=== PATIENT | male | born 1950 | race Caucasian/White ===

== ENCOUNTER → 2017-06-15 | Outpatient (REF) | payer MEDICARE ==
[~2017-06-15] MED LIST: ASPI81TA31 OR; CIAL5TAB OR; CIPR500T4; FLAG500T; TESTIM TOP; VICO5TAB; VICO5TAB PO; [UNRECOGNIZED DRUG - OTHER] PO
[2017-06-15 20:32] LABS: ALBUMIN 3.6 GM/DL (3.2-5.2); ALBUMIN/GLOBULIN RATIO 1.06 (1.00-1.93); BILIRUBIN,TOTAL 0.6 MG/DL (0.2-1.0); CREATININE FOR GFR 1.39 MG/DL (0.70-1.30); GLOMERULAR FILTRATION RATE 54.8 (>49); POTASSIUM SERUM 3.7 MEQ/L (3.5-5.1)
[2017-06-15 20:43] LABS: MEAN CORPUSCULAR HEMOGLOBIN 32.4 pg (27.0-33.0); MEAN CORPUSCULAR HGB CONC 34.5 g/dl (32.0-36.5); MEAN CORPUSCULAR VOLUME 93.7 fl (80.0-96.0); RED CELL DISTRIBUTION WIDTH 12.7 % (11.5-14.5)
== END ==
LOC: M SFHCADAM 14:15
PROVIDERS: ATTEND Family Medicine
DX: E29.1 Testicular hypofunction (principal)

== ENCOUNTER → 2017-08-17 | Outpatient (REF) | payer MEDICARE ==
[2017-08-17 20:01] LABS: ALBUMIN 3.4 GM/DL (3.2-5.2); ALKALINE PHOSPHATASE 57 U/L (45-117); ALT/SGPT 49 U/L (12-78); ANION GAP 7 MEQ/L (8-16); AST/SGOT 25 U/L (15-37); BILIRUBIN,TOTAL 0.6 MG/DL (0.2-1.0); BLOOD UREA NITROGEN 17 MG/DL (7-18); CALCIUM LEVEL 8.8 MG/DL (8.8-10.2); CARBON DIOXIDE LEVEL 28 MEQ/L (21-32); CHLORIDE LEVEL 107 MEQ/L (98-107); CHOLESTEROL LEVEL 157 MG/DL (<200); CREATININE FOR GFR 1.09 MG/DL (0.70-1.30); GLOMERULAR FILTRATION RATE > 60.0 (>49); GLUCOSE, FASTING 94 MG/DL (80-110); POTASSIUM SERUM 3.9 MEQ/L (3.5-5.1); SODIUM LEVEL 142 MEQ/L (136-145); TOTAL PROTEIN 6.8 GM/DL (6.4-8.2); TRIGLYCERIDES LEVEL 215 MG/DL (<150)
[2017-08-17 20:14] LABS: MEAN CORPUSCULAR HEMOGLOBIN 31.4 pg (27.0-33.0); MEAN CORPUSCULAR HGB CONC 33.4 g/dl (32.0-36.5); RED CELL DISTRIBUTION WIDTH 13.1 % (11.5-14.5); WHITE BLOOD COUNT 4.9 10^3/uL (4.0-10.0)
== END ==
LOC: M SFHCADAM 11:27
PROVIDERS: ATTEND Family Medicine
DX: Z51.81 Encounter for therapeutic drug level monitoring (principal); Z79.899 Other long term (current) drug therapy; E29.1 Testicular hypofunction; R73.03 Prediabetes; Z12.5 Encounter for screening for malignant neoplasm of prostate
CPT/HCPCS: 80053; 80061; 83036; 84403; 85027; G0103

== ENCOUNTER → 2018-05-05 | Outpatient (REF) | payer MEDICARE ==
[2018-05-05 12:41] LABS: HEMATOCRIT 46.1 % (42.0-52.0); HEMOGLOBIN 15.3 g/dl (13.5-17.5); MEAN CORPUSCULAR HEMOGLOBIN 28.8 pg (27.0-33.0); MEAN CORPUSCULAR HGB CONC 33.2 g/dl (32.0-36.5); MEAN CORPUSCULAR VOLUME 86.7 fl (80.0-96.0); PLATELET COUNT, AUTOMATED 187 10^3/uL (150-450); RED BLOOD COUNT 5.32 10^6/uL (4.30-6.10); RED CELL DISTRIBUTION WIDTH 14.1 % (11.5-14.5); WHITE BLOOD COUNT 5.2 10^3/uL (4.0-10.0)
[2018-05-05 13:02] LABS: ALBUMIN 3.6 GM/DL (3.2-5.2); ALBUMIN/GLOBULIN RATIO 0.95 (1.00-1.93); ALKALINE PHOSPHATASE 62 U/L (45-117); ALT/SGPT 64 U/L (12-78); ANION GAP 9 MEQ/L (8-16); AST/SGOT 43 U/L (7-37); BILIRUBIN,TOTAL 0.7 MG/DL (0.2-1.0); BLOOD UREA NITROGEN 24 MG/DL (7-18); CALCIUM LEVEL 8.9 MG/DL (8.8-10.2); CARBON DIOXIDE LEVEL 28 MEQ/L (21-32); CHLORIDE LEVEL 106 MEQ/L (98-107); CREATININE FOR GFR 1.18 MG/DL (0.70-1.30); GLOMERULAR FILTRATION RATE > 60.0 (>49); GLUCOSE, FASTING 95 MG/DL (70-100); POTASSIUM SERUM 4.1 MEQ/L (3.5-5.1); SODIUM LEVEL 143 MEQ/L (136-145); TOTAL PROTEIN 7.4 GM/DL (6.4-8.2)
[2018-05-05 13:05] LABS: TESTOSTERONE 157 NG/DL (241-827)
== END ==
LOC: M SFHCADAM 09:25
DX: E29.1 Testicular hypofunction (principal)
CPT/HCPCS: 84403

== ENCOUNTER → 2018-09-12 | Outpatient (REF) | payer MEDICARE ==
[2018-09-12 12:45] LABS: HEMATOCRIT 53.9 % (42.0-52.0); MEAN CORPUSCULAR HEMOGLOBIN 30.1 pg (27.0-33.0); MEAN CORPUSCULAR HGB CONC 33.4 g/dl (32.0-36.5); PLATELET COUNT, AUTOMATED 187 10^3/uL (150-450); RED BLOOD COUNT 5.99 10^6/uL (4.30-6.10); RED CELL DISTRIBUTION WIDTH 12.6 % (11.5-14.5); WHITE BLOOD COUNT 5.8 10^3/uL (4.0-10.0)
[2018-09-12 13:08] LABS: ALBUMIN 3.4 GM/DL (3.2-5.2); ALBUMIN/GLOBULIN RATIO 0.87 (1.00-1.93); ALKALINE PHOSPHATASE 65 U/L (45-117); ALT/SGPT 66 U/L (12-78); ANION GAP 10 MEQ/L (8-16); AST/SGOT 37 U/L (7-37); BILIRUBIN,TOTAL 0.7 MG/DL (0.2-1.0); BLOOD UREA NITROGEN 18 MG/DL (7-18); CALCIUM LEVEL 8.8 MG/DL (8.8-10.2); CARBON DIOXIDE LEVEL 27 MEQ/L (21-32); CHLORIDE LEVEL 102 MEQ/L (98-107); CHOLESTEROL LEVEL 155 MG/DL (<200); CHOLESTEROL RISK RATIO 4.428 (<5); CREATININE FOR GFR 1.24 MG/DL (0.70-1.30); GLOMERULAR FILTRATION RATE > 60.0 (>49); GLUCOSE, FASTING 105 MG/DL (70-100); HDL CHOLESTEROL 35 MG/DL (>40); LDL CHOLESTEROL 88 MG/DL (<100); NON-HDL-C 120 MG/DL; POTASSIUM SERUM 4.2 MEQ/L (3.5-5.1); SODIUM LEVEL 139 MEQ/L (136-145); TESTOSTERONE 626 NG/DL (241-827); TOTAL PROTEIN 7.3 GM/DL (6.4-8.2); TRIGLYCERIDES LEVEL 161 MG/DL (<150)
[2018-09-12 13:16] LABS: ESTIMATED AVERAGE GLUCOSE 128 MG/DL (60-110); HEMOGLOBIN A1c 6.1 %
== END ==
LOC: M SFHCADAM 10:21
DX: E29.1 Testicular hypofunction (principal); I11.9 Hypertensive heart disease without heart failure; E78.49 Other hyperlipidemia; R73.03 Prediabetes
CPT/HCPCS: 84403

== ENCOUNTER → 2018-10-11 | Outpatient (CLI) | payer MEDICARE | LOC: M ADAMS 13:46 | DX: M89.8X7 Other specified disorders of bone, ankle and foot (principal) | CPT/HCPCS: 73630 ==

== ENCOUNTER → 2019-03-20 | Outpatient (REF) | payer MEDICARE ==
[2019-03-20 19:30] LABS: HEMATOCRIT 48.6 % (42.0-52.0); HEMOGLOBIN 15.6 g/dl (13.5-17.5); MEAN CORPUSCULAR HEMOGLOBIN 29.6 pg (27.0-33.0); MEAN CORPUSCULAR HGB CONC 32.1 g/dl (32.0-36.5); MEAN CORPUSCULAR VOLUME 92.2 fl (80.0-96.0); PLATELET COUNT, AUTOMATED 192 10^3/uL (150-450); RED BLOOD COUNT 5.27 10^6/uL (4.30-6.10); WHITE BLOOD COUNT 4.2 10^3/uL (4.0-10.0)
[2019-03-20 19:39] LABS: ALBUMIN 3.4 GM/DL (3.2-5.2); ALT/SGPT 52 U/L (12-78); BLOOD UREA NITROGEN 17 MG/DL (7-18); CALCIUM LEVEL 8.2 MG/DL (8.8-10.2); CARBON DIOXIDE LEVEL 25 MEQ/L (21-32); CHLORIDE LEVEL 107 MEQ/L (98-107); CHOLESTEROL LEVEL 118 MG/DL (<200); CHOLESTEROL RISK RATIO 3.687 (<5); CREATININE FOR GFR 1.24 MG/DL (0.70-1.30); FERRITIN 33 NG/ML (26-388); GLOMERULAR FILTRATION RATE > 60.0 (>49); GLUCOSE, FASTING 83 MG/DL (70-100); HDL CHOLESTEROL 32 MG/DL (>40); IRON (FE) 142 UG/DL (65-175); LDL CHOLESTEROL 68 MG/DL (<100); NON-HDL-C 86 MG/DL; POTASSIUM SERUM 4.3 MEQ/L (3.5-5.1); SODIUM LEVEL 141 MEQ/L (136-145); TOTAL IRON BINDING CAPACITY 284 UG/DL (250-450); TOTAL PROTEIN 7.2 GM/DL (6.4-8.2); TRIGLYCERIDES LEVEL 88 MG/DL (<150)
[2019-03-20 19:45] LABS: TESTOSTERONE 709 NG/DL (241-827)
[2019-03-20 19:50] LABS: HEMOGLOBIN A1c 5.8 %
[2019-03-21 13:42] LABS: ALBUMIN 3.93 GM/DL (3.29-5.55); ALBUMIN % 54.6 % (55.8-66.1); ALPHA-1-GLOBULINS 0.29 GM/DL (0.17-0.41); ALPHA-2-GLOBULINS 0.57 GM/DL (0.42-0.99); ALPHA-2-GLOBULINS % 7.9 % (7.1-11.8); BETA-1-GLOBULINS 0.45 GM/DL (0.28-0.60); BETA-1-GLOBULINS % 6.3 % (4.7-7.2); BETA-2-GLOBULINS 0.81 GM/DL (0.19-0.55); BETA-2-GLOBULINS % 11.3 % (3.2-6.5); GAMMA GLOBULIN % 15.9 % (11.1-18.8); GAMMA GLOBULINS 1.14 GM/DL (0.65-1.58)
[2019-03-21 13:55] LABS: IMMUNOTYPING SERUM IGA ABNORMAL (NORMAL)
[2019-03-21 13:56] LABS: IMMUNOTYPING SERUM LAMBDA ABNORMAL (NORMAL)
== END ==
LOC: M SFHCADAM 11:26
PROVIDERS: ATTEND Family Medicine
DX: D75.1 Secondary polycythemia (principal); E78.49 Other hyperlipidemia; R73.03 Prediabetes; N40.1 Benign prostatic hyperplasia with lower urinary tract symptoms; Z79.899 Other long term (current) drug therapy; E29.1 Testicular hypofunction; R77.8 Other specified abnormalities of plasma proteins; Z12.5 Encounter for screening for malignant neoplasm of prostate
CPT/HCPCS: 80053; 80061; 82728; 83036; 83550; 84165; 84403; 85027; 85046; 86335; G0103

== ENCOUNTER → 2019-03-30 | Outpatient (CLI) | payer MEDICARE ==
--- NOTE | 2019-03-30 17:09 | REP ---
Chest x-ray: Two views. History: Chronic cough. Comparison study: February 13, 2015. Findings: The lungs are well inflated and clear. Pleural angles are sharp. Heart size is normal. Pulmonary vasculature is not increased. No significant bony abnormalities seen. There are degenerative disc changes in the thoracic spine as before. Impression: No active disease. Electronically Signed by Jose Garcia MD 03/30/2019 05:00 P
== END ==
LOC: M ADAMS 14:45
PROVIDERS: ATTEND Family Medicine
DX: M51.34 Other intervertebral disc degeneration, thoracic region (principal); R05 Cough

== ENCOUNTER → 2019-05-16 | Outpatient (CLI) | payer MEDICARE ==
[~2019-05-16] MED LIST changes: +ASPI81TA85 PO; +LOSA50TA88 PO; +MULTCAP PO; +TADA5TAB PO; +TEST30SO3
--- NOTE | 2019-05-16 13:45 | REP ---
OSSEOUS SURVEY: History of MGUS. AP, LATERAL VIEWS OF THE SKULL: FINDINGS: No acute fracture or destructive osseous lesion. Venous lakes are noted. AP, LATERAL VIEWS CERVICAL SPINE: FINDINGS: No acute fracture or destructive osseous lesion. Venous lakes are noted. Degenerative changes are noted. AP BILATERAL HUMERUS: FINDINGS: No acute fracture or destructive osseous lesion. Venous lakes are noted. AP AND LATERAL THORACIC SPINE: Disc space narrowing, anterior lipping, and partial syndesmophyte formation noted. There is no acute fracture or destructive osseous lesion. AP PARTIAL RIBS: FINDINGS: No acute fracture or destructive osseous lesion. Venous lakes are noted. AP AND LATERAL VIEWS OF THE LUMBAR SPINE: Partial syndesmophyte formation on the left. Disc space narrowing and anterior lipping at every level. Degenerative facet joint changes at every level bilaterally. No evidence of an acute fracture or destructive osseous lesion. AP BILATERAL FEMUR: FINDINGS: No acute fracture or destructive osseous lesion. Venous lakes are noted. AP PELVIS: A single AP view of the pelvis was performed. The hip joint spaces are symmetric and relatively well maintained. There is no acute fracture or destructive osseous lesion. OVERALL IMPRESSION: Chronic changes as described above. No evidence of a lytic or blastic osseous lesion. Electronically Signed by Qamar Carter DO 05/16/2019 04:20 P
== END ==
LOC: M LAB 11:26 → M RAD 11:26
PROVIDERS: ATTEND Internal Medicine
DX: D47.2 Monoclonal gammopathy (principal)

== ENCOUNTER 2019-07-27 09:11 | Day surgery (SDC) | payer MEDICARE ==
[~2019-07-27] VITALS: Ht 177.8 cm; Wt 96.5 kg
[~2019-07-27 09:11] MED LIST changes: +NS 1,000 ML IV ONE
[2019-07-27] MEDS ORDERED: LIDOCAINE 2% INJ 100 MG/5 ML SDV (FOR ANES.) As Ordered ONE (10:53)
[2019-07-27] MEDS ORDERED: PROPOFOL 200 MG/20 ML VIAL As Ordered ONE (10:53)
--- NOTE | 2019-07-27 11:53 | ROOR ---
Patient Name: Álvaro Mitchell Procedure Date: 07/27/2019 11:00 AM Date of : 1950 Age: 69 Room: [facility] Gender: Male Note Status: Finalized Procedure: Upper GI endoscopy Indications: Heartburn, Suspected gastro-esophageal reflux disease Providers: Sandro Cannon MD Referring MD: Nico Mccallum MD Requesting Provider: Medicines: Monitored Anesthesia Care Complications: No immediate complications. Procedure: Pre-Anesthesia Assessment: - Prior to the procedure, a History and Physical was performed, and patient medications and allergies were reviewed. The patient is competent. The risks and benefits of the procedure and the sedation options and risks were discussed with the patient. All questions were answered and informed consent was obtained. Patient identification and proposed procedure were verified by the physician, the nurse and the anesthesiologist in the procedure room. Mental Status Examination: alert and oriented. Airway Examination: normal oropharyngeal airway and neck mobility. Respiratory Examination: clear to auscultation. CV Examination: normal. Prophylactic Antibiotics: The patient does not require prophylactic antibiotics. Prior Anticoagulants: The patient has taken no previous anticoagulant or antiplatelet agents. ASA Grade Assessment: II - A patient with mild systemic disease. After reviewing the risks and benefits, the patient was deemed in satisfactory condition to undergo the procedure. The anesthesia plan was to use monitored anesthesia care (MAC). Immediately prior to administration of medications, the patient was re-assessed for adequacy to receive sedatives. The heart rate, respiratory rate, oxygen saturations, blood pressure, adequacy of pulmonary ventilation, and response to care were monitored throughout the procedure. The physical status of the patient was re-assessed after the procedure. The Endoscope was introduced through the mouth, and advanced to the second part of duodenum. The upper GI endoscopy was accomplished without difficulty. The patient tolerated the procedure well. Findings: The Z-line was regular and was found 42 cm from the incisors. Mucosal changes including longitudinal furrows, white plaques and crepe paper esophagus were found in the middle third of the esophagus and in the lower third of the esophagus. Four biopsies were obtained in the middle third of the esophagus with cold forceps for histology. Verification of patient identification for the specimen was done by the physician, nurse and transmission technician using the patient's name and date. Scattered moderate inflammation characterized by erosions, erythema and granularity was found in the gastric antrum. Biopsies were taken with a cold forceps for Helicobacter pylori testing. A few 8 mm sessile polyps with no stigmata of recent bleeding were found in the gastric fundus and in the gastric body. Biopsies were taken with a cold forceps for histology. The duodenal bulb and second portion of the duodenum were normal. Impression: - Z-line regular, 42 cm from the incisors. - Esophageal mucosal changes suspicious for eosinophilic esophagitis. - Gastritis. Biopsied. - A few gastric polyps. Biopsied. - Normal duodenal bulb and second portion of the duodenum. - Four biopsies were obtained in the middle third of the esophagus. Recommendation: - Patient has a contact number available for emergencies. The signs and symptoms of potential delayed complications were discussed with the patient. Return to normal activities tomorrow. Written discharge instructions were provided to the patient. - High fiber diet. - Follow an antireflux regimen. - Recommend acid suppression medication for 6 weeks. - Await pathology results. - Telephone GI clinic for pathology results in 2 weeks. - Return to primary care physician. Sandro Cannon MD Sandro Cannon MD 07/27/2019 11:52:51 AM Electronically signed by Sandro Cannon MD Number of Addenda: 0 Note Initiated On: 07/27/2019 11:00 AM Estimated Blood Loss: Estimated blood loss was minimal.
[2019-07-27 12:18] VITALS: BP 150/70
--- NOTE | 2019-07-27 12:40 | ROOR ---
Patient Name: Álvaro Mitchell Procedure Date: 07/27/2019 11:00 AM Date of : 1950 Age: 69 Room: [facility] Gender: Male Note Status: Finalized Procedure: Colonoscopy Indications: Screening for colorectal malignant neoplasm Providers: Sandro Cannon MD Referring MD: Nico Mccallum MD Requesting Provider: Medicines: Monitored Anesthesia Care Complications: No immediate complications. Procedure: Pre-Anesthesia Assessment: - Prior to the procedure, a History and Physical was performed, and patient medications and allergies were reviewed. The patient is competent. The risks and benefits of the procedure and the sedation options and risks were discussed with the patient. All questions were answered and informed consent was obtained. Patient identification and proposed procedure were verified by the physician, the nurse and the anesthesiologist in the procedure room. Mental Status Examination: alert and oriented. Airway Examination: normal oropharyngeal airway and neck mobility. Respiratory Examination: clear to auscultation. CV Examination: normal. Prophylactic Antibiotics: The patient does not require prophylactic antibiotics. Prior Anticoagulants: The patient has taken no previous anticoagulant or antiplatelet agents. ASA Grade Assessment: II - A patient with mild systemic disease. After reviewing the risks and benefits, the patient was deemed in satisfactory condition to undergo the procedure. The anesthesia plan was to use monitored anesthesia care (MAC). Immediately prior to administration of medications, the patient was re-assessed for adequacy to receive sedatives. The heart rate, respiratory rate, oxygen saturations, blood pressure, adequacy of pulmonary ventilation, and response to care were monitored throughout the procedure. The physical status of the patient was re-assessed after the procedure. The Colonoscope was introduced through the anus and advanced to the terminal ileum, with identification of the appendiceal orifice and IC valve. The colonoscopy was performed without difficulty. The patient tolerated the procedure well. The quality of the bowel preparation was good. The terminal ileum, ileocecal valve, appendiceal orifice, and rectum were photographed. Scope insertion time was 3 minutes. Scope withdrawal time was 8 minutes. The total duration of the procedure was 11 minutes. Findings: The perianal and digital rectal examinations were normal. The terminal ileum appeared normal. Two sessile polyps were found in the ascending colon. The polyps were 3 to 4 mm in size. These polyps were removed with a cold biopsy forceps. Resection and retrieval were complete. Verification of patient identification for the specimen was done by the physician and nurse using the patient's name, date and medical record number. Estimated blood loss was minimal. Multiple small and large-mouthed diverticula were found from descending colon to transverse colon. There was no evidence of diverticular bleeding. Non-bleeding external and internal hemorrhoids were found during retroflexion. The hemorrhoids were medium-sized. Impression: - The examined portion of the ileum was normal. - Two 3 to 4 mm polyps in the ascending colon, removed with a cold biopsy forceps. Resected and retrieved. - Moderate diverticulosis from descending to transverse colon. There was no evidence of diverticular bleeding. - Non-bleeding external and internal hemorrhoids. Recommendation: - Patient has a contact number available for emergencies. The signs and symptoms of potential delayed complications were discussed with the patient. Return to normal activities tomorrow. Written discharge instructions were provided to the patient. - High fiber diet. - Continue present medications. - Await pathology results. - Repeat colonoscopy in 5-10 years for surveillance based on pathology results. - Telephone GI clinic for pathology results in 2 weeks. - Return to primary care physician. Sandro Cannon MD Sandro Cannon MD 07/27/2019 12:39:55 PM Electronically signed by Sandro Cannon MD Number of Addenda: 0 Note Initiated On: 07/27/2019 11:00 AM Estimated Blood Loss: Estimated blood loss was minimal.
== END 2019-07-27 12:20 | disposition home or self-care (01) ==
LOC: M OPP 09:11
PROVIDERS: ATTEND Internal Medicine Gastroenterology
DX: Z12.11 Encounter for screening for malignant neoplasm of colon (principal); K64.8 Other hemorrhoids; D12.2 Benign neoplasm of ascending colon; K57.30 Diverticulosis of large intestine without perforation or abscess without bleeding; K22.8 Other specified diseases of esophagus; K29.70 Gastritis, unspecified, without bleeding; K31.7 Polyp of stomach and duodenum; R12 Heartburn; I10 Essential (primary) hypertension; G47.30 Sleep apnea, unspecified; K21.9 Gastro-esophageal reflux disease without esophagitis; Z79.82 Long term (current) use of aspirin; Z79.899 Other long term (current) drug therapy

== ENCOUNTER → 2019-08-15 | Outpatient (REF) | payer MEDICARE ==
[~2019-08-15] MED LIST changes: -NS 1,000 ML IV ONE
== END ==
LOC: M LABDRWAD 19:30
PROVIDERS: ATTEND Family Medicine
DX: E29.1 Testicular hypofunction (principal)

== ENCOUNTER → 2020-04-19 | Outpatient (CLI) | payer MEDICARE ==
[~2020-04-19] MED LIST changes: +OMEP-218 PO
[2020-04-19 14:35] LABS: ALBUMIN 3.3 GM/DL (3.2-5.2); ALT/SGPT 48 U/L (12-78); BILIRUBIN,TOTAL 0.5 MG/DL (0.2-1.0); BLOOD UREA NITROGEN 16 MG/DL (7-18); CALCIUM LEVEL 8.7 MG/DL (8.8-10.2); CARBON DIOXIDE LEVEL 25 MEQ/L (21-32); CHLORIDE LEVEL 110 MEQ/L (98-107); CREATININE FOR GFR 1.16 MG/DL (0.70-1.30); GLOMERULAR FILTRATION RATE > 60.0 (>49); GLUCOSE, FASTING 91 MG/DL (70-100); IMMUNOGLOBULIN G 950 MG/DL (681-1648); IMMUNOGLOBULIN M 83.4 MG/DL (40-230); POTASSIUM SERUM 4.2 MEQ/L (3.5-5.1); SODIUM LEVEL 142 MEQ/L (136-145); TOTAL PROTEIN 6.9 GM/DL (6.4-8.2)
== END ==
LOC: M PLALAB 12:01
PROVIDERS: ATTEND Internal Medicine Hematology & Oncology
DX: R77.9 Abnormality of plasma protein, unspecified (principal)

== ENCOUNTER 2020-06-14 11:19 | Day surgery (SDC) | payer MEDICARE ==
[~2020-06-14 11:19] MED LIST changes: -ASPI81TA85 PO; +ASPI81TA86 PO; +LIDOCAINE 2% 100MG/5ML SDV (FOR ANES.) As Ordered ONE; +TEST30SO3 TOP; +fentaNYL 100 MCG/2 ML INJECTION (J3010) As Ordered ONE; +propofoL 200 MG/20 ML VIAL As Ordered ONE
--- NOTE | 2020-07-24 11:32 | ROOR ---
Patient Name: Álvaro Mitchell Procedure Date: 06/14/2020 10:42 AM Date of : 1950 Age: 69 Room: [facility] Gender: Male Note Status: Finalized Procedure: Upper GI endoscopy Indications: Heartburn, Suspected gastro-esophageal reflux disease Providers: Sandro Cannon MD Referring MD: Nico Mccallum MD Requesting Provider: Medicines: Monitored Anesthesia Care Complications: No immediate complications. Procedure: Pre-Anesthesia Assessment: - Prior to the procedure, a History and Physical was performed, and patient medications and allergies were reviewed. The patient is competent. The risks and benefits of the procedure and the sedation options and risks were discussed with the patient. All questions were answered and informed consent was obtained. Patient identification and proposed procedure were verified by the physician, the nurse and the anesthesiologist in the procedure room. Mental Status Examination: alert and oriented. Airway Examination: normal oropharyngeal airway and neck mobility. Respiratory Examination: clear to auscultation. CV Examination: normal. Prophylactic Antibiotics: The patient does not require prophylactic antibiotics. Prior Anticoagulants: The patient has taken no previous anticoagulant or antiplatelet agents. ASA Grade Assessment: II - A patient with mild systemic disease. After reviewing the risks and benefits, the patient was deemed in satisfactory condition to undergo the procedure. The anesthesia plan was to use monitored anesthesia care (MAC). Immediately prior to administration of medications, the patient was re-assessed for adequacy to receive sedatives. The heart rate, respiratory rate, oxygen saturations, blood pressure, adequacy of pulmonary ventilation, and response to care were monitored throughout the procedure. The physical status of the patient was re-assessed after the procedure. The Endoscope was introduced through the mouth, and advanced to the second part of duodenum. The upper GI endoscopy was accomplished without difficulty. The patient tolerated the procedure well. Findings: Mucosal changes including ringed esophagus, longitudinal furrows and white plaques were found in the middle third of the esophagus and in the lower third of the esophagus. Biopsies were obtained from the proximal and distal esophagus with cold forceps for histology of suspected eosinophilic esophagitis. Verification of patient identification for the specimen was done by the physician and nurse using the patient's name, date and medical record number. Estimated blood loss was minimal. The Z-line was regular and was found 45 cm from the incisors. The LINTON capsule with delivery system was introduced through the mouth and advanced into the esophagus, such that the LINTON pH capsule was positioned 39 cm from the incisors, which was 6 cm proximal to the GE junction. Suction was applied to the well of the LINTON pH capsule to suck in the adjacent mucosa of the esophagus using the external vacuum pump set at a minimum vacuum pressure of 550 mmHg for 30 seconds. The LINTON pH capsule was then deployed by depressing the plunger on top of the handle to advance the locking pin into the mucosa, thereby attaching the capsule to the esophagus. The plunger was then rotated a quarter turn clockwise to release the capsule from the delivery system. The delivery system was then withdrawn. Endoscopy was utilized for probe placement and diagnostic evaluation. The scope was reinserted to evaluate placement of the LINTON capsule. Visualization showed the LINTON capsule to be in an appropriate position. Scattered mild inflammation characterized by erythema and granularity was found in the gastric antrum. Biopsies were taken with a cold forceps for Helicobacter pylori testing. The duodenal bulb and second portion of the duodenum were normal. Impression: - Esophageal mucosal changes suspicious for eosinophilic esophagitis. Biopsied. - Z-line regular, 45 cm from the incisors. - Gastritis. Biopsied. - Normal duodenal bulb and second portion of the duodenum. - The LINTNO pH capsule was positioned 39 cm from the incisors, which was 6 cm proximal to the GE junction. Recommendation: - Patient has a contact number available for emergencies. The signs and symptoms of potential delayed complications were discussed with the patient. Return to normal activities tomorrow. Written discharge instructions were provided to the patient. - High fiber diet. - Continue present medications. - Follow an antireflux regimen. - Await pathology results. - Telephone GI clinic for pathology results in 2 weeks. - Return to primary care physician. Sandro Cannon MD 06/14/2020 11:18:55 AM Number of Addenda: 0 Note Initiated On: 06/14/2020 10:42 AM Estimated Blood Loss: Estimated blood loss was minimal.
== END 2020-06-14 11:54 | disposition home or self-care (01) ==
LOC: M OPP 11:19
PROVIDERS: ATTEND Internal Medicine Gastroenterology
DX: K22.8 Other specified diseases of esophagus (principal); K29.70 Gastritis, unspecified, without bleeding; R12 Heartburn; I10 Essential (primary) hypertension; Z79.82 Long term (current) use of aspirin; Z79.899 Other long term (current) drug therapy; Z91.030 Bee allergy status; Z88.8 Allergy status to other drugs, medicaments and biological substances
CPT/HCPCS: 43239; 88305; 91035; J3010

== ENCOUNTER 2020-08-24 16:38 | Inpatient (IN) | payer MEDICARE ==
[~2020-08-24] VITALS: Ht 177.8 cm; Wt 101.2 kg
[~2020-08-24 16:38] MED LIST changes: -LIDOCAINE 2% 100MG/5ML SDV (FOR ANES.) As Ordered ONE; -fentaNYL 100 MCG/2 ML INJECTION (J3010) As Ordered ONE; -propofoL 200 MG/20 ML VIAL As Ordered ONE
[2020-08-24 17:34] LABS: BASO % 0.3 % (0.0-1.0); EOS # 0.1 10^3/uL (0.0-0.5); EOS % 1.3 % (0.0-3.0); HEMATOCRIT 41.9 % (42.0-52.0); HEMOGLOBIN 12.8 g/dl (13.5-17.5); LYMPH # 1.2 10^3/uL (1.5-5.0); LYMPH % 13.6 % (24.0-44.0); MEAN CORPUSCULAR HEMOGLOBIN 25.3 pg (27.0-33.0); MEAN CORPUSCULAR HGB CONC 30.5 g/dl (32.0-36.5); MONO # 0.8 10^3/uL (0.0-0.8); MONO % 8.6 % (0.0-5.0); NEUTROPHILS # 6.8 10^3/uL (1.5-8.5); NEUTROPHILS % 75.8 % (36.0-66.0); PLATELET COUNT, AUTOMATED 209 10^3/uL (150-450); RED BLOOD COUNT 5.05 10^6/uL (4.30-6.10)
[2020-08-24] MEDS ORDERED: ISOVUE-370 76% 100ML VIAL As Ordered ONE (17:53)
--- NOTE | 2020-08-24 18:00 | REPVR ---
PROCEDURE INFORMATION: Exam: XR Left Femur Exam date and time: 08/24/2020 5:15 PM Age: 70 years old Clinical indication: Pain and injury or trauma; Fall; Sprain or strain; Hip; Left; Heel; Additional info: Left femur pain S/P fall TECHNIQUE: Imaging protocol: XR Left femur. Views: 2 views. COMPARISON: No relevant prior studies available. FINDINGS: Bones/joints: Unremarkable. No acute fracture. No osteoarthritis at the left hip or left knee. Soft tissues: A 9 x 3 mm calcification is 10 mm superior and medial to the lesser trochanter. It is not seen on the lateral view. The soft tissues are otherwise unremarkable. IMPRESSION: A 9 x 3 mm calcification is 10 mm superior and medial to the lesser trochanter. Its clinical significance is uncertain. Correlate clinically. If the patient's pain is at this location, CT or MRI may be helpful. Electronically signed by: Juan Markham On 08/24/2020 18:00:01 PM
[2020-08-24] MEDS ORDERED: MORPHINE 2 MG/ML 1ML VIAL (J2270) IV ONE (18:30)
--- NOTE | 2020-08-24 19:29 | REPVR ---
PROCEDURE INFORMATION: Exam: CT Abdomen And Pelvis With Contrast Exam date and time: 08/24/2020 6:25 PM Age: 70 years old Clinical indication: Abdominal pain; Flank; Right; Additional info: Right flank pain S/P fall TECHNIQUE: Imaging protocol: Computed tomography of the abdomen and pelvis with intravenous contrast. Radiation optimization: All CT scans at this facility use at least one of these dose optimization techniques: automated exposure control; mA and/or kV adjustment per patient size (includes targeted exams where dose is matched to clinical indication); or iterative reconstruction. Contrast material: ISOVUE 370; Contrast volume: 100 ml; Contrast route: INTRAVENOUS (IV); COMPARISON: No relevant prior studies available. FINDINGS: Lungs: There is mild posterior dependent atelectasis at the lung bases. Heart size is mildly enlarged. Liver: Normal. No mass. Gallbladder and bile ducts: Normal. No calcified stones. No ductal dilation. Pancreas: Normal. No ductal dilation. Spleen: The spleen is mildly enlarged, measuring 13.2 cm in maximum dimension. Small calcified granulomas in the spleen. Adrenals: Normal. No mass. Kidneys and ureters: There is a 1.7 cm simple cyst in the upper pole right kidney. No hydronephrosis bilaterally. There is bilateral mild renal atrophy with renal cortical thinning and renal cortical scarring. Stomach and bowel: There is no bowel dilatation to indicate obstruction. No pneumatosis. There are multiple colonic diverticula, without definite focal features of diverticulitis. There are anastomotic sutures in the distal sigmoid colon. Small duodenal diverticulum. Appendix: Appendix is unremarkable. Intraperitoneal space: Unremarkable. No free air. No significant fluid collection. Vasculature: There is calcified atherosclerotic plaque in the abdominal aorta and medium-sized arteries in the abdomen and pelvis. No aortic aneurysm. Lymph nodes: There are small lymph nodes within parenchyma and large fatty giovanni in the inguinal regions and right external iliac chain. No enlarged lymph nodes. Urinary bladder: There is subtle slightly increased density less than that of calcium at the bilateral ureterovesical junctions. This may be artifactual given its symmetric appearance from slightly thicker wall at the ureterovesical junction. There are surgical clips in the left retroperitoneum inferiorly. Reproductive: Unremarkable as visualized. Bones/joints: There is multilevel degenerative disc and facet disease resulting in central canal narrowing at multiple levels, most pronounced at L4-L5. There may be minimal dextroconvex lumbar scoliosis, or this may be positional. There is a minimally displaced right L3 transverse process fracture and subtle nondisplaced right L2 transverse process fracture which are likely acute. Soft tissues: There is an umbilical/periumbilical hernia which is noninflamed, containing fat and a loop of small bowel. No upstream obstruction. IMPRESSION: 1. Umbilical/periumbilical hernia containing noninflamed fat and a loop of small bowel. No upstream obstruction. 2. 1.7 cm simple cyst in the upper pole right kidney. No further imaging follow-up is necessary. Bilateral renal atrophy and cortical scarring. 3. Multiple colonic diverticula without focal features of diverticulitis. 4. Mild splenomegaly. 5. Mild cardiomegaly. COMMENTS: Consistent with the [employer]'s Incidental Findings Committee white paper (J Am Lala Radiol 2018): Any incidental renal lesion less than 1 cm or classified as too small to characterize, or any incidental cystic renal lesion characterized as simple-appearing, is likely benign. No follow-up imaging is recommended for these lesions per consensus recommendations based on imaging criteria. Electronically signed by: Tiffanie Nevarez On 08/24/2020 19:28:46 PM
--- NOTE | 2020-08-24 19:52 | REPVR ---
PROCEDURE INFORMATION: Exam: CT Lumbar Spine Without Contrast Exam date and time: 08/24/2020 6:25 PM Age: 70 years old Clinical indication: Injury or trauma; Fall; Blunt trauma (contusions or hematomas); Additional info: Fall injury TECHNIQUE: Imaging protocol: Computed tomography images of the lumbar spine without contrast. Radiation optimization: All CT scans at this facility use at least one of these dose optimization techniques: automated exposure control; mA and/or kV adjustment per patient size (includes targeted exams where dose is matched to clinical indication); or iterative reconstruction. COMPARISON: 1. SR - Bone Survey Adult 05/16/2019 11:36:[address] Abdomen with contrast 12/18/2009 1:29:17 AM 3. DX - CHEST 2 VIEW 03/30/2019 2:35:27 PM FINDINGS: Vertebrae: As on CT abdomen and pelvis also performed today, there are acute right L2 and L3 transverse process fractures, nondisplaced at L2 and slightly displaced at L3. Minimal anterior height loss at L1 and L2, similar at L2 compared to 12/18/2009 and similar at L1 compared to 03/30/2019. No definite acute compression deformities. No other fracture. There may be minimal dextroconvex lumbar scoliosis, or this may be positional in nature. There is multilevel degenerative disc and facet disease. No subluxation. T12-L1: At T12-L1, there is no central canal or neural foraminal narrowing. L1-L2: At L1-L2, there is minimal central canal narrowing and mild to moderate bilateral neural foraminal narrowing. Broad-based disc bulge is present. L2-L3: At L2-L3, there is minimal central canal narrowing with broad-based disc bulge resulting in minimal central canal narrowing and minimal bilateral neural foraminal narrowing. L3-L4: At L3-L4, there is moderate central canal narrowing and minimal right neural foraminal narrowing. Right paracentral disc osteophyte complex is seen at this level impinging on the right lateral recess. L4-L5: At L4-L5, there is moderate to severe central canal narrowing and mild bilateral neural foraminal narrowing. L5-S1: At L5-S1, there is mild central canal narrowing, and severe right neural foraminal narrowing. Soft tissues: There is no paravertebral hematoma. For findings in the abdomen and pelvis, please refer to CT abdomen and pelvis report from today IMPRESSION: 1. Acute right L2 and L3 transverse process fractures. 2. Minimal anterior height loss at L1 and L2 which is likely within normal limits, and similar in appearance to prior studies. No definite acute compression deformity. 3. Multilevel degenerative disc and facet disease with multilevel central canal and neural foraminal narrowing. Electronically signed by: Tiffanie Nevarez On 08/24/2020 19:52:38 PM
[2020-08-24] MEDS ORDERED: diazePAM 10MG/2ML SYRINGE (J3360 PER 5MG) IV ONE (20:15)
[2020-08-24] MEDS ORDERED: MORPHINE 4 MG/ML 1ML VIAL/SYRINGE (J2270) IV ONE (20:15)
[2020-08-24] MEDS ORDERED: GABAPENTIN 300 MG CAP PO ONE (21:30)
[2020-08-24] MEDS ORDERED: KETOROLAC 30 MG/ML 1ML VIAL IV ONE (21:30)
[2020-08-25] MEDS ORDERED: MOM 30ML SUSPENSION UDC PO PRN
[2020-08-25] MEDS ORDERED: MORPHINE 2 MG/ML 1ML VIAL (J2270) IV PRN
--- NOTE | 2020-08-25 00:11 | HPEPDOC ---
[facility] Medical History & Physical Date of Admission Aug 24, 2020 Date of Service: Aug 24, 2020 History and Physical CHIEF COMPLAINT: Back pain HISTORY OF PRESENT ILLNESS: 70-year-old male with past medical history of hypertension and GERD presents to the emergency department by EMS after sustaining a fall at work from a height of approximately 6 feet. Patient fell on his left hip as well as his back. Patient tells me he is in a lot of pain but has gotten better with administration of pain medications in the emergency department. Dr. Mays orthopedics was consulted from the emergency department who recommended Toradol and gabapentin after no success with pain management with morphine and Valium. Patient will be admitted to the medical floor for pain management and evaluation by orthopedics in the morning. Denies loss of control of his urine or bowel movements. Tells me his pain is mostly located around his left hip and his back is not overly painful at this time. PAST MEDICAL HISTORY: GERD, HTN diverticulitis PAST SURGICAL HISTORY: Small bowel resection after diverticulitis in 2011 SOCIAL HISTORY: Endorses drinking alcohol socially every few weeks Denies tobacco use Denies illicit drug use FAMILY HISTORY: Father had uncontrolled diabetes and at a young age from complications of diabetes. Mother had hypertension ALLERGIES: Please see below. REVIEW OF SYSTEMS: Constitutional: No sweating or weight loss Eyes: No eye pain or acute blurred vision HENT: No complaints of headache or sore throat Cadiovascular: No Chest pain or palpitations Pulm: No SOB or cough Gastrointestinal: No N/V, no abdominal pain. Genitourinary: No dysuria or hematuria Musculoskeletal: Per HPI Skin: No rash or jaundice HOME MEDICATIONS: Please see below. PHYSICAL EXAMINATION: Constitutional: Awake and alert, in mild to moderate distress ENT: Sclera are clear. Mucosa is moist. Respiratory: Lungs CTA bilaterally. No respiratory distress. No use of accessory muscles. Cardiovascular: RRR S1 and S2 are normal, no murmur Gastrointestinal: Abdomen is soft, non distended, non tender, BS present. Musculoskeletal: No edema. Tenderness to palpation over the left hip and femur areas unable to manipulate to fully examine the area due to pain. Mild focal tenderness over lumbar spine. Neurologic: No focal neurological deficit. Mental Status: A&O x3, normal affect Skin: Warm, dry LABORATORY DATA: See below. IMAGING: CT lumbar spine shows acute right L2 and L3 transverse process fractures. Left femur x-ray does not show an acute fracture however shows a calcification superior and medial to the lesser trochanter with uncertain clinical significance. MICROBIOLOGY: Please see below. ASSESSMENT/PLAN 70-year-old male with past medical history of hypertension and GERD presents to the emergency department by EMS after sustaining a fall at work from a height of approximately [address] lumbar spine shows acute right L2 and L3 transverse process fractures. Orthopedics recommended admission for pain control and consultation in the morning if pain is still uncontrolled. # L2 and L3 transverse process fractures: PT/OT. Pain control. Scheduled toradol and morphine for breakthrough pain. - Dr Masy asked to be formally consulted in the morning if pain is still not well controlled. - If his left femur area pain is not improved tomorrow consider consulting with orthopedics on getting an MRI # HTN: resume home Losartan. Monitor and titrate. # GERD: continue home protonix. # DVT proph: heparin A Yousef Hospitalist Vital Signs Vital Signs Date Time Temp Pulse Resp B/P (MAP) Pulse Ox O2 Delivery O2 Flow Rate FiO2 08/24/20 22:30 86 154/71 (98) 98 08/24/20 20:56 18 08/24/20 19:15 Room Air 08/24/20 19:00 98.4 Laboratory Data Labs 24H Laboratory Tests 2 08/24/20 17:23: Immature Granulocyte % (Auto) 0.4, Neutrophils (%) (Auto) 75.8H, Lymphocytes (%) (Auto) 13.6L, Monocytes (%) (Auto) 8.6H, Eosinophils (%) (Auto) 1.3, Basophils (%) (Auto) 0.3, Neutrophils # (Auto) 6.8, Lymphocytes # (Auto) 1.2L, Monocytes # (Auto) 0.8, Eosinophils # (Auto) 0.1, Basophils # (Auto) 0.0, Nucleated Red Blood Cells % (auto) 0.0 CBC/BMP Laboratory Tests 08/24/20 17:23 Home Medications Scheduled Aspirin (Aspir 81) 81 Mg Tablet.dr, 81 MG PO DAILY Losartan Potassium (Losartan Potassium) 50 Mg Tablet, 50 MG PO DAILY Multivitamin (Multivitamins) 1 Each Capsule, 1 CAP PO DAILY Omeprazole (Omeprazole) 20 Mg Capsule.dr, 20 MG PO DAILY Tadalafil (Tadalafil) 5 Mg Tablet, 5 MG PO PRN Testosterone (Testosterone) 30 Mg/1.5 Ml Adelina..market president, 3 PUMP TOP DAILY to under arm Allergies Coded Allergies: No Known Allergies (Verified , 12/18/09) A-FIB/CHADSVASC A-FIB History Current/History of A-Fib/PAF?: No MARNIESEUMU Holbrook MD Aug 25, 2020 00:11
[2020-08-25 01:29] VITALS: BP 158/88
[2020-08-25 05:36] VITALS: BP 156/78
[2020-08-25 05:43] LABS: HEMATOCRIT 41.3 % (42.0-52.0); HEMOGLOBIN 12.8 g/dl (13.5-17.5); MEAN CORPUSCULAR HEMOGLOBIN 26.2 pg (27.0-33.0); MEAN CORPUSCULAR VOLUME 84.6 fl (80.0-96.0); PLATELET COUNT, AUTOMATED 194 10^3/uL (150-450); RED BLOOD COUNT 4.88 10^6/uL (4.30-6.10); WHITE BLOOD COUNT 6.9 10^3/uL (4.0-10.0)
[2020-08-25 05:55] LABS: BLOOD UREA NITROGEN 25 MG/DL (7-18); CALCIUM LEVEL 7.8 MG/DL (8.8-10.2); CARBON DIOXIDE LEVEL 29 MEQ/L (21-32); CHLORIDE LEVEL 107 MEQ/L (98-107); CREATININE FOR GFR 1.21 MG/DL (0.70-1.30); GLOMERULAR FILTRATION RATE > 60.0 (>49); GLUCOSE, FASTING 106 MG/DL (70-100); POTASSIUM SERUM 3.9 MEQ/L (3.5-5.1); SODIUM LEVEL 141 MEQ/L (136-145)
[2020-08-25] MEDS: KETOROLAC TROMETHAMINE 10 MG TAB PO SCH ×3 (06:10→22:15)
[2020-08-25] MEDS: HEPARIN SOD (PORCINE) 5000UNITS/ML 1ML VIAL/SYRINGE SQ SCH ×3 (06:11→22:16)
[2020-08-25] MEDS: ACETAMINOPHEN TAB 650MG DOSE (2X325MG) PO PRN (06:13)
[2020-08-25] MEDS ORDERED: ENOXAPARIN 40MG/0.4ML SYRINGE (J1650 PER 10MG) SC SCH (09:00)
[2020-08-25] MEDS: OMEPRAZOLE 20 MG CAP PO SCH (09:36)
[2020-08-25] MEDS: LOSARTAN 50MG TABLET PO SCH (09:36)
[2020-08-25 14:00] VITALS: BP 116/80
--- NOTE | 2020-08-25 17:48 | IPNPDOC ---
Subjective Date Seen The patient was seen on 08/25/20. Subjective Chief Complaint/HPI Mr. Mitchell is a 70-year-old male with hypertension and GERD who presents to the ED for a fall at work from a height approximately 6 feet and found to have L2 and L3 transverse process fractures. This morning, he felt that the back pain was better, but still had right arm and left thigh pain. Otherwise, denies any fever/chill, chest pain, abdominal pain, or dysuria. Constitutional: Denies: Chills, Fever Pulmonary: Denies: Dyspnea Cardiovascular: Denies: Chest Pain Gastrointestinal: Denies: Abdominal Pain Genitourinary: Denies: Dysuria Musculoskeletal: Reports: Back Pain, Shoulder Pain (right), Leg Pain (left thigh) Objective Physical Examination General Exam: Positive: Alert, Cooperative; Negative: No Acute Distress Eye Exam: Positive: EOMI; Negative: Sclera icteric ENT Exam: Positive: Atraumatic Neck Exam: Positive: Supple Chest Exam: Positive: Clear to auscultation Heart Exam: Positive: Rate Normal, Regular Rhythm Abdomen Exam: Positive: Normal bowel sounds; Negative: Tenderness Extremity Exam: Negative: Edema Neuro Exam: Positive: Normal Speech, Cranial Nerves 3-12 NL Psych Exam: Positive: Mental status NL, Mood NL Assessment /Plan Assessment Mr. Mitchell is a 70-year-old male with hypertension and GERD who presents to the ED for a fall at work from a height approximately 6 feet and found to have L2 and L3 transverse process fractures. Orthopedic surgery was consulted. Recommendations appreciated. Plan/VTE VTE Prophylaxis Ordered?: Yes Plan 1. L2 and L3 transverse process fractures Scheduled ketorolac, acetaminophen as needed, and morphine as needed for breakthrough pain Orthopedic surgery has been consulted. Recommendations appreciated 2. Hypertension Continue losartan 3. GERD Continue omeprazole 4. DVT prophylaxis Heparin subcutaneous VS, I&O, 24H, Fishbone Vital Signs/I&O Vital Signs Date Time Temp Pulse Resp B/P (MAP) Pulse Ox O2 Delivery O2 Flow Rate FiO2 08/25/20 14:00 98.2 85 18 116/80 (92) 97 Room Air I&O- Last 24 Hours up to 6 AM 08/25/20 06:00 Intake Total 300 ml Output Total 0 ml Balance 300 ml Laboratory Data 24H LABS Laboratory Tests 2 08/25/20 05:21: Nucleated Red Blood Cells % (auto) 0.0, Anion Gap 5L, Glomerular Filtration Rate > 60.0, Calcium Level 7.8L CBC/BMP Laboratory Tests 08/25/20 05:21 SAUL ESCOBEDO DO Aug 25, 2020 17:48
--- NOTE | 2020-08-25 19:05 | REPVR ---
PROCEDURE INFORMATION: Exam: CT Left Lower Extremity Without Contrast, Hip Exam date and time: 08/25/2020 6:37 PM Age: 70 years old Clinical indication: Injury or trauma; Fall; Blunt trauma; Hip; Left; Additional info: Fracture TECHNIQUE: Imaging protocol: CT of the Left lower extremity without contrast was performed. Exam focused on the hip. Radiation optimization: All CT scans at this facility use at least one of these dose optimization techniques: automated exposure control; mA and/or kV adjustment per patient size (includes targeted exams where dose is matched to clinical indication); or iterative reconstruction. COMPARISON: CT ABD/PEL W/IV CONTRAST ONLY 08/24/2020 6:15 PM FINDINGS: Bones/joints: There is no fracture or dislocation of the left hip. There is no CT evidence for osteonecrosis of the left hip. There is marginal spurring from the left acetabulum. There is a well-corticated ossicle adjacent to the left acetabulum, which represents an os acetabulum. Soft tissues: There is no left inguinal hernia. There is mild edema in the subcutaneous tissues lateral to the left hip. No drainable soft tissue fluid collection is noted. Bowel: There is sigmoid diverticulosis without evidence for sigmoid diverticulitis. There is a suture line involving the rectosigmoid junction. The bowel was not fully imaged. Bladder: The urinary bladder is intact. Reproductive: There are calcifications in the prostate gland. The seminal vesicles are unremarkable. There is a calcification in the right scrotal sac, which is compatible with a scrotolith. IMPRESSION: 1. No fracture or dislocation of the left hip. 2. Mild osteoarthritis of the left hip joint. Electronically signed by: Nasir Cleveland On 08/25/2020 19:05:06 PM
[2020-08-25 22:00] VITALS: BP 142/80
[2020-08-26] MEDS: HEPARIN SOD (PORCINE) 5000UNITS/ML 1ML VIAL/SYRINGE SQ SCH ×3 (05:20→22:07)
[2020-08-26] MEDS: KETOROLAC TROMETHAMINE 10 MG TAB PO SCH ×3 (05:20→22:08)
[2020-08-26 06:00] VITALS: BP 165/80
[2020-08-26 07:31] LABS: HEMATOCRIT 41.9 % (42.0-52.0); HEMOGLOBIN 12.5 g/dl (13.5-17.5); MEAN CORPUSCULAR HEMOGLOBIN 25.2 pg (27.0-33.0); MEAN CORPUSCULAR HGB CONC 29.8 g/dl (32.0-36.5); MEAN CORPUSCULAR VOLUME 84.3 fl (80.0-96.0); PLATELET COUNT, AUTOMATED 196 10^3/uL (150-450); RED BLOOD COUNT 4.97 10^6/uL (4.30-6.10); WHITE BLOOD COUNT 5.1 10^3/uL (4.0-10.0)
[2020-08-26 07:51] LABS: CALCIUM LEVEL 8.5 MG/DL (8.8-10.2); CREATININE FOR GFR 1.28 MG/DL (0.70-1.30); GLOMERULAR FILTRATION RATE 59.5 (>49); POTASSIUM SERUM 4.4 MEQ/L (3.5-5.1)
[2020-08-26] MEDS: OMEPRAZOLE 20 MG CAP PO SCH (09:16)
[2020-08-26] MEDS: LOSARTAN 50MG TABLET PO SCH (09:16)
[2020-08-26] MEDS: ACETAMINOPHEN TAB 650MG DOSE (2X325MG) PO PRN (12:01)
[2020-08-26 14:01] VITALS: BP 180/90
[2020-08-26] MEDS ORDERED: PERCOCET 5MG/325MG TAB PO PRN (15:15)
--- NOTE | 2020-08-26 17:05 | IPNPDOC ---
Subjective Date Seen The patient was seen on 08/26/20. Subjective Chief Complaint/HPI Mr. Mitchell is a 70-year-old male with hypertension and GERD who presents to the ED for a fall at work from a height approximately 6 feet and found to have L2 and L3 transverse process fractures. This morning, he still feels achy all over. Otherwise, denies any fever/chill, chest pain, abdominal pain, or dysuria. Constitutional: Denies: Fever Pulmonary: Denies: Dyspnea Cardiovascular: Denies: Chest Pain Gastrointestinal: Denies: Abdominal Pain Genitourinary: Denies: Dysuria Musculoskeletal: Reports: Other Symptoms (achy) Objective Physical Examination General Exam: Positive: Alert, Cooperative; Negative: No Acute Distress Eye Exam: Positive: EOMI; Negative: Sclera icteric ENT Exam: Positive: Atraumatic Neck Exam: Positive: Supple Chest Exam: Positive: Clear to auscultation Heart Exam: Positive: Rate Normal, Regular Rhythm Abdomen Exam: Positive: Normal bowel sounds; Negative: Tenderness Extremity Exam: Negative: Edema Neuro Exam: Positive: Normal Speech, Cranial Nerves 3-12 NL Psych Exam: Positive: Mental status NL, Mood NL Assessment /Plan Assessment Mr. Mitchell is a 70-year-old male with hypertension and GERD who presents to the ED for a fall at work from a height approximately 6 feet and found to have L2 and L 3 transverse process fractures. Orthopedic surgery was consulted. Recommendations appreciated. Orthopedics recommends brace which will arrive tomorrow Plan/VTE VTE Prophylaxis Ordered?: Yes Plan 1. L2 and L3 transverse process fractures Scheduled ketorolac, acetaminophen as needed, and morphine as needed for breakthrough pain Orthopedic surgery has been consulted. Recommendations appreciated -Recommend Brace which will arrive tomorrow 2. Hypertension Continue losartan -Blood pressure not controlled. Will add on amlodipine 5mg qD with first dose now 3. GERD Continue omeprazole 4. DVT prophylaxis Heparin subcutaneous Dispo: Possible discharge tomorrow pending brace and PT recommendations VS, I&O, 24H, Fishbone Vital Signs/I&O Vital Signs Date Time Temp Pulse Resp B/P (MAP) Pulse Ox O2 Delivery O2 Flow Rate FiO2 08/26/20 14:01 98.0 65 18 180/90 (120) 96 Room Air I&O- Last 24 Hours up to 6 AM 08/26/20 06:00 Intake Total 1770 ml Output Total 650 ml Balance 1120 ml Laboratory Data 24H LABS Laboratory Tests 2 08/26/20 07:03: Nucleated Red Blood Cells % (auto) 0.0, Anion Gap 4L, Glomerular Filtration Rate 59.5, Calcium Level 8.5L CBC/BMP Laboratory Tests 08/26/20 07:03 SAUL ESCOBEDO DO Aug 26, 2020 17:05
[2020-08-26 17:29] VITALS: BP 176/92
[2020-08-26] MEDS: amLODIPine 5 MG TAB PO SCH (17:29)
[2020-08-26 19:00] VITALS: BP 167/88
[2020-08-26 19:50] VITALS: BP 164/86
[2020-08-26 22:00] VITALS: BP 168/87
[2020-08-27] VITALS (7 sets, daily range): BP systolic 160–182; BP diastolic 82–98
[2020-08-27] MEDS: HEPARIN SOD (PORCINE) 5000UNITS/ML 1ML VIAL/SYRINGE SQ SCH ×2 (06:36→14:03)
[2020-08-27] MEDS: KETOROLAC TROMETHAMINE 10 MG TAB PO SCH ×2 (06:36→15:20)
[2020-08-27 06:38] LABS: HEMATOCRIT 41.5 % (42.0-52.0); HEMOGLOBIN 12.7 g/dl (13.5-17.5); MEAN CORPUSCULAR HEMOGLOBIN 25.9 pg (27.0-33.0); MEAN CORPUSCULAR HGB CONC 30.6 g/dl (32.0-36.5); MEAN CORPUSCULAR VOLUME 84.7 fl (80.0-96.0); PLATELET COUNT, AUTOMATED 190 10^3/uL (150-450); WHITE BLOOD COUNT 4.9 10^3/uL (4.0-10.0)
[2020-08-27 07:09] LABS: BLOOD UREA NITROGEN 28 MG/DL (7-18); CALCIUM LEVEL 8.7 MG/DL (8.8-10.2); CARBON DIOXIDE LEVEL 26 MEQ/L (21-32); CHLORIDE LEVEL 111 MEQ/L (98-107); CREATININE FOR GFR 1.09 MG/DL (0.70-1.30); GLOMERULAR FILTRATION RATE > 60.0 (>49); GLUCOSE, FASTING 94 MG/DL (70-100); POTASSIUM SERUM 4.1 MEQ/L (3.5-5.1); SODIUM LEVEL 141 MEQ/L (136-145)
[2020-08-27] MEDS: LOSARTAN 50MG TABLET PO SCH (08:18)
[2020-08-27] MEDS: OMEPRAZOLE 20 MG CAP PO SCH (08:19)
[2020-08-27] MEDS: amLODIPine 5 MG TAB PO SCH (08:19)
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
[2020-08-27] MEDS ORDERED: AMLO1TAB25 PO (10:39)
[2020-08-27] MEDS ORDERED: IBUP200T45 PO (10:43)
[2020-08-27] MEDS ORDERED: SELF1KIT MC (10:43)
[2020-08-27] MEDS ORDERED: PERCOCET PO (10:43)
[2020-08-27] MEDS ORDERED: cloNIDine 0.1 MG TAB PO ONE ×2 (10:45→13:45)
[2020-08-27] MEDS ORDERED: amLODIPine 5 MG TAB PO ONE (10:45)
--- NOTE | 2020-08-27 11:17 | DS.PDOC ---
Discharge Summary General Date of Admission Aug 24, 2020 at 23:52 Date of Discharge Aug 27, 2020 Discharge Summary DISCHARGE DIAGNOSES: Mechanical fall at home Acute right L2 and L3 transverse process fracture Uncontrolled hypertension Incidental finding of umbilical. Umbilical hernia. Incidental finding of 1.7 cm simple cyst in the upper pole of the right kidney. Incidental finding of bilateral renal atrophy and cortical scarring. Incidental finding of a multiple colonic diverticula. Incidental finding of mild splenomegaly. Incidental finding of mild cardiomegaly Gastroesophageal reflux Mild osteoarthritis of the left hip joint BATTERY ASSEMBLER: ORTHOPEDIC SURGERY-Dr. Cristino Mays COMPLICATIONS/CHIEF COMPLAINT: Lumbar Transverse Fracture. HISTORY OF PRESENT ILLNESS: 70-year-old male with history of reflux, hypertension and diverticulitis, status post small bowel resection in 2011, presented to the emergency room after falling from a height of 6 feet landing on his left hip and back without any h ead trauma admitted for pain control and orthopedic surgery evaluation. Patient on CT lumbar spine was found to have an acute right L2 and L3 transverse process fracture, left femoral x-ray did not show acute fracture. However, shows a calcification superior and medial to the lesser trochanter of uncertain significance. Orthopedic surgery, Dr. Cristino Mays was consulted and recommended activity as tolerated with a walker and a brace. No lifting, pulling or pushing. Patient was given PERCOCET 5/325 one tablet by mouth every 4 hourly as needed for pain. HOSPITAL COURSE: Patient's pain improved from 10 out of 10-3 out of 10 at the bedside with Percocet 1 tablet every 4 as needed for pain, Toradol 10 mg every 8 hourly, with no signs of dyspepsia. Patient was In his home dose of aspirin and Prilosec with no signs of active GI bleed and stable hemoglobin. Patient had a brace place as recommended by orthopedic surgery and passed home safety evaluation. He is to have repeat x-rays of the lumbar spine as outpatient and a follow-up with orthopedic surgeon, Dr. Cristino Mays 1-2 weeks after hospital discharge. During his hospital stay, patient's blood pressure was uncontrolled with systolic pre ssure ranging from 150-180 attributable to uncontrolled back pain, anxiety, and stress from moving to [place] with his recreational vehicle. Patient says that his blood pressure is usually controlled and has been doing well prior to hospital admission. Since he is packing up in the [facility] and will be moving to [place], his stress level has increased. 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 He says that he was previously on a diuretic but has recently been changed over the past few months TO Losartan with better control and diastolic pressure dropping to the 80s instead of high 90s during his outpatient visits with Dr. Mccallum. Despite blood pressure of 170 systolic. He denied any lightheadedness, dizziness, headache, chest pain, pressure, tightness, shortness of breath, or any feeling of impending doom. He was given 1 dose of clonidine 0.1 mg and Norvasc initially 5 mg daily increased to 10 mg and has been advised to check his blood pressure at home prior to taking Norvasc at home. , He feels well enough to go home today and has been advised to not push, pull or lift but activity as tolerated with a walker and brace to be placed at all times. DISCHARGE MEDICATIONS: Please see below. ALLERGIES: Please see below. PHYSICAL EXAMINATION ON DISCHARGE: VITAL SIGNS: Please see below. GENERAL: Awake, alert, oriented to person, place and time. No respiratory distress or use of respiratory accessory muscles HEENT: Anicteric sclera. No jaundice, no icterus, no JVD, thyromegaly or cervical lymphadenopathy. Moist mucous membranes CARDIOVASCULAR EXAMINATION: S1, S2, regular rate and rhythm. No murmurs, rubs or gallops. No pericardial friction rub. Nondisplaced point of maximal impulse RESPIRATORY EXAMINATION: Air entry is equal bilaterally. Clear to auscultation bilaterally. No wheezing, rales or rhonchi. No adventitious breath sounds. No kyphosis or scoliosis ABDOMINAL EXAMINATION: Obese, soft, nontender, nondistended, positive bowel sounds 4 quadrants. No rebound, guarding, no hepatosplenomegaly. No abdominal bruit. No CVA tenderness. No fluid wave. Braces placed across the lower back.. EXTREMITIES: No cyanosis, clubbing or pitting edema. LABORATORY DATA: Please see below. IMAGIN08/24/2020. X-ray left femur A 9 x 3 mm calcification is 10 mm superior and medial to the lesser trochanter, its clinical significance is uncertain. Correlate clinically. If the patient's pain is at this location CT or MRI may be helpful. 08/24/2020. CT abdomen and pelvis Umbilical periumbilical hernia containing noninflamed fat and loop of small bowel. No upstream obstruction. 1.7 cm simple cyst in the upper pole of the right kidney. No further imaging follow-up is necessary. Bilateral renal atrophy and cortical scarring, multiple colonic diverticula without focal features of diverticulitis, mild splenomegaly, mild cardiomegaly. 08/24/2020. CT lumbar spine without contrast Acute right L2 and L3 transverse process fractures, minimal anterior height loss at L1 and L2 which is likely within normal limits and similar in appearance to prior studies. No definite acute compression deformity, multilevel degenerative disc and facet disease with multilevel central canal and neural foraminal na rrowing. 08/25/2020. CT left lower extremity without contrast, hip No fracture or dislocation of the left hip. Mild osteoarthritis of the left hip joint ACTIVITY: Weightbearing as tolerated with a walker. He is not to lift, carry, push or pull DIET: 2 g sodium diet DISCHARGE PLAN: Outpatient follow-up with primary care physician and orthopedic surgery DISPOSITION: Home DISCHARGE INSTRUCTIONS: 1. Weightbearing as tolerated with a walker and brace per orthopedic surgery recommendations. Patient is not to lift, carry, push or pull. Follow-up in the orthopedic office in 2 weeks for repeat x-rays. Should there be any difficulties. Patient may follow-up with orthopedic surgery sooner. 2. Checked her blood pressure prior to taking Norvasc and losartan and hold Norvasc if systolic pressure is less than 120 mmHg. 3. Patient is to take ibuprofen as needed on a full stomach or with meals. He is to continue his Prilosec while on ibuprofen and aspirin to decrease risk of GI bleed and gastritis. 3. Patient is to avoid dehydration due to active use of ibuprofen and losartan and risk of acute kidney injury. ITEMS TO FOLLOWUP ON ON OUTPATIENT: Outpatient follow-up with primary care physician within one week of hospital discharge and orthopedic surgery within 2 weeks of hospital discharge for repeat x-rays. DISCHARGE CONDITION: Stable TIME SPENT ON DISCHARGE:30 minutes. Vital Signs/I&Os Vital Signs Date Time Temp Pulse Resp B/P (MAP) Pulse Ox O2 Delivery O2 Flow Rate FiO2 08/27/20 08:18 170/98 08/27/20 06:00 97.9 59 15 96 Room Air I&O- Last 24 Hours up to 6 AM 08/27/20 06:00 Intake Total 840 ml Output Total 350 ml Balance 490 ml Laboratory Data Labs 24H Laboratory Tests 2 08/27/20 05:53: Nucleated Red Blood Cells % (auto) 0.0, Anion Gap 4L, Glomerular Filtration Rate > 60.0, Calcium Level 8.7L CBC/BMP Laboratory Tests 08/27/20 05:53 Discharge Medications Scheduled Amlodipine Besylate (Amlodipine Besylate) 10 Mg Tablet, 10 MG PO DAILY Aspirin (Aspir 81) 81 Mg Tablet.dr, 81 MG PO DAILY, (Reported) Losartan Potassium (Losartan Potassium) 50 Mg Tablet, 50 MG PO DAILY, (Reported) Multivitamin (Multivitamins) 1 Each Capsule, 1 CAP PO DAILY, (Reported) Omeprazole (Omeprazole) 20 Mg Capsule.dr, 20 MG PO DAILY, (Reported) Tadalafil (Tadalafil) 5 Mg Tablet, 5 MG PO PRN, (Reported) Testosterone (Testosterone) 30 Mg/1.5 Ml Adelina..clinical trial specialist, 3 PUMP TOP DAILY, (Reported) to under arm Scheduled PRN Ibuprofen (Ibu-200) 200 Mg Tablet, 200 MG PO Q4-6HP PRN for fever W MEAL OR FULL STOMACH Oxycodone/Acetaminophen (Oxycodone-Acetaminophen 5-325) 1 Each Tablet, 1 TAB PO Q4HP PRN for MILD/MODERATE PAIN (PS 1-7) Allergies Coded Allergies: No Known Allergies (Verified , 12/18/09) LILI CARTER MD Aug 27, 2020 11:17
[2020-08-27] MEDS ORDERED: PERCOCET 5MG/325MG TAB PO ONE (13:45)
[2020-08-28] MEDS ORDERED: amLODIPine 10 MG TAB PO SCH (09:00)
== END 2020-08-27 16:55 | disposition home or self-care (01) | DRG 552 ==
LOC: EDBD 16:38 → M ED 16:38 → M ED INP 23:52 → ENRESERVDT 08-25 00:31 → ENRESERVTM 08-25 00:31 → M MS5PR 08-25 01:44
PROVIDERS: ADMIT Family Medicine; ATTEND General Practice
DX: S32.029A Unspecified fracture of second lumbar vertebra, initial encounter for closed fracture (principal); S32.039A Unspecified fracture of third lumbar vertebra, initial encounter for closed fracture; K21.9 Gastro-esophageal reflux disease without esophagitis; I10 Essential (primary) hypertension; Z90.49 Acquired absence of other specified parts of digestive tract; W17.89XA Other fall from one level to another, initial encounter; Y92.008 Other place in unspecified non-institutional (private) residence as the place of occurrence of the external cause; Y99.8 Other external cause status; Y93.89 Activity, other specified; K57.90 Diverticulosis of intestine, part unspecified, without perforation or abscess without bleeding; M16.12 Unilateral primary osteoarthritis, left hip; K42.9 Umbilical hernia without obstruction or gangrene; Z79.899 Other long term (current) drug therapy

== ENCOUNTER → 2021-04-29 | Outpatient (CLI) | payer MEDICARE ==
[~2021-04-29] MED LIST changes: +AMLO1TAB25 PO; +IBUP200T45 PO; +PERCOCET PO; +SELF1KIT MC
[2021-04-29 13:15] LABS: CHOLESTEROL RISK RATIO 4.166 (<5); FREE T4 0.92 NG/DL (0.76-1.46); THYROID STIMULATING HORMONE 1.74 uIU/ML (0.358-3.740)
[2021-04-29 18:34] LABS: HEMOGLOBIN A1c 5.7 %
== END ==
LOC: M WUC 09:36
PROVIDERS: ATTEND Family Medicine
DX: R73.03 Prediabetes (principal); Z12.5 Encounter for screening for malignant neoplasm of prostate; E78.00 Pure hypercholesterolemia, unspecified
CPT/HCPCS: 36415; 80061; 83036; 84439; 84443; G0103

== ENCOUNTER → 2021-07-22 | Outpatient (CLI) | payer MEDICARE | LOC: M WUC 08:08 | PROVIDERS: ATTEND Family Medicine | DX: E29.1 Testicular hypofunction (principal) ==

== ENCOUNTER → 2021-09-01 | Outpatient (CLI) | payer MEDICARE ==
[2021-09-01 12:37] LABS: CREATININE FOR GFR 1.4 MG/DL (0.70-1.30); GLOMERULAR FILTRATION RATE 53.5 (>49)
== END ==
LOC: M WUC 11:09
PROVIDERS: ATTEND Psychiatry & Neurology Neurology
DX: I10 Essential (primary) hypertension (principal)

== ENCOUNTER → 2022-04-20 | Outpatient (REF) | payer MEDICARE ==
[~2022-04-20] MED LIST changes: -IBUP200T45 PO; +IBUP200T46 PO; +LOSA50TA28 PO; -LOSA50TA88 PO; +OMEP-173 PO; -OMEP-218 PO
== END ==
LOC: M SFHCDERM 15:13
PROVIDERS: ATTEND Physician Assistant
DX: L82.0 Inflamed seborrheic keratosis (principal)

== ENCOUNTER → 2022-04-23 | Outpatient (CLI) | payer MEDICARE ==
[2022-04-23 12:25] LABS: CHOLESTEROL RISK RATIO 4.321 (<5); THYROID STIMULATING HORMONE 2.21 uIU/ML (0.358-3.740)
== END ==
LOC: M WUC 08:06
PROVIDERS: ATTEND Internal Medicine Cardiovascular Disease
DX: I11.9 Hypertensive heart disease without heart failure (principal); R06.02 Shortness of breath; R94.31 Abnormal electrocardiogram [ECG] [EKG]; E66.9 Obesity, unspecified; I27.20 Pulmonary hypertension, unspecified; E07.9 Disorder of thyroid, unspecified

== ENCOUNTER → 2022-04-27 | Outpatient (CLI) | payer MEDICARE | LOC: M RAD 11:15 | PROVIDERS: ATTEND Internal Medicine Cardiovascular Disease | DX: I65.23 Occlusion and stenosis of bilateral carotid arteries (principal); R42 Dizziness and giddiness ==

== ENCOUNTER → 2022-05-04 | Outpatient (CLI) | payer MEDICARE ==
[2022-05-04 15:30] LABS: ALBUMIN 3.6 GM/DL (3.2-5.2); CALCIUM LEVEL 8.9 MG/DL (8.8-10.2); CREATININE FOR GFR 1.45 MG/DL (0.70-1.30); GLOMERULAR FILTRATION RATE 51.4 (>49); PHOSPHORUS LEVEL 3.2 MG/DL (2.5-4.9); POTASSIUM SERUM 3.7 MEQ/L (3.5-5.1)
== END ==
LOC: M WUC 11:19
PROVIDERS: ATTEND Internal Medicine Cardiovascular Disease
DX: I11.9 Hypertensive heart disease without heart failure (principal)

== ENCOUNTER → 2022-05-12 | Outpatient (CLI) | payer MEDICARE ==
[2022-05-12 13:05] LABS: HEMATOCRIT 48.4 % (42.0-52.0); HEMOGLOBIN 15.7 g/dl (13.5-17.5); MEAN CORPUSCULAR HGB CONC 32.4 g/dl (32.0-36.5); MEAN CORPUSCULAR VOLUME 92.4 fl (80.0-96.0); PLATELET COUNT, AUTOMATED 188 10^3/uL (150-450); RED BLOOD COUNT 5.24 10^6/uL (4.30-6.10); WHITE BLOOD COUNT 4.6 10^3/uL (4.0-10.0)
[2022-05-12 13:15] LABS: HEMOGLOBIN A1c 5.7 %
[2022-05-12 13:34] LABS: ALBUMIN 3.5 GM/DL (3.2-5.2); BILIRUBIN,TOTAL 0.7 MG/DL (0.2-1.0); CALCIUM LEVEL 9.5 MG/DL (8.8-10.2); CREATININE FOR GFR 1.41 MG/DL (0.70-1.30); GLOMERULAR FILTRATION RATE 53.1 (>49); POTASSIUM SERUM 3.7 MEQ/L (3.5-5.1); TOTAL PROTEIN 7.1 GM/DL (6.4-8.2)
== END ==
LOC: M WUC 10:12
PROVIDERS: ATTEND Family Medicine
DX: E29.1 Testicular hypofunction (principal); D47.2 Monoclonal gammopathy; I11.9 Hypertensive heart disease without heart failure; R73.03 Prediabetes; Z12.5 Encounter for screening for malignant neoplasm of prostate
CPT/HCPCS: 36415; 80053; 83036; 84403; 85027; G0103

== ENCOUNTER → 2022-06-10 | Outpatient (CLI) | payer MEDICARE | LOC: M SLEEP HO 13:55 | PROVIDERS: ATTEND Internal Medicine Cardiovascular Disease | DX: I27.20 Pulmonary hypertension, unspecified (principal) ==

== ENCOUNTER → 2022-09-14 | Outpatient (REF) | payer MEDICARE ==
[2022-09-14 18:11] LABS: BLOOD UREA NITROGEN 24 MG/DL (7-18); CALCIUM LEVEL 8.8 MG/DL (8.8-10.2); CARBON DIOXIDE LEVEL 29 MEQ/L (21-32); CHLORIDE LEVEL 107 MEQ/L (98-107); CREATININE FOR GFR 1.26 MG/DL (0.70-1.30); GLOMERULAR FILTRATION RATE > 60.0 (>42); GLUCOSE, FASTING 104 MG/DL (70-100); POTASSIUM SERUM 3.6 MEQ/L (3.5-5.1); SODIUM LEVEL 140 MEQ/L (136-145)
== END ==
LOC: M WUC 16:44
PROVIDERS: ATTEND Physician Assistant
DX: I11.9 Hypertensive heart disease without heart failure (principal)

== ENCOUNTER → 2024-09-12 | Outpatient (REF) | payer MEDICARE ==
[~2024-09-12] MED LIST changes: +ECOT81TA5 PO
[2024-09-12 17:50] LABS: BASO % 0.8 % (0.0-1.0); EOS # 0.4 10^3/uL (0.0-0.5); HEMATOCRIT 43.1 % (42.0-52.0); HEMOGLOBIN 13.8 g/dl (13.5-17.5); LYMPH # 1.9 10^3/uL (1.5-5.0); LYMPH % 51.3 % (24.0-44.0); MEAN CORPUSCULAR HEMOGLOBIN 30.1 pg (27.0-33.0); MEAN CORPUSCULAR VOLUME 94.1 fl (80.0-96.0); MONO # 0.5 10^3/uL (0.0-0.8); MONO % 14.2 % (2.0-8.0); NEUTROPHILS % 22.2 % (36.0-66.0); PLATELET COUNT, AUTOMATED 159 10^3/uL (150-450); RED BLOOD COUNT 4.58 10^6/uL (4.30-6.10); WHITE BLOOD COUNT 3.7 10^3/uL (4.0-10.0)
[2024-09-12 17:54] LABS: NEUTROPHILS # 0.8 10^3/uL (1.5-8.5)
[2024-09-12 17:57] LABS: ALBUMIN 3.4 G/DL (3.2-5.2); ALKALINE PHOSPHATASE 65 U/L (40-129); ALT/SGPT 36 U/L (7.0-40); AST/SGOT 23 U/L (<34); BILIRUBIN,TOTAL 0.7 MG/DL (0.3-1.2); BLOOD UREA NITROGEN 20 MG/DL (9-23); CALCIUM LEVEL 9.1 MG/DL (8.3-10.6); CARBON DIOXIDE LEVEL 29 MMOL/L (20-31); CHLORIDE LEVEL 111 MMOL/L (98-107); CHOLESTEROL LEVEL 149 MG/DL (<200); CHOLESTEROL RISK RATIO 4.64 (<5); GLOMERULAR FILTRATION RATE > 60.0 (>42); GLUCOSE, FASTING 107 MG/DL (74-106); HDL CHOLESTEROL 32.1 MG/DL (>40); LDL CHOLESTEROL 80.3 MG/DL (<100); NON-HDL-C 116.9 MG/DL; POTASSIUM SERUM 4.3 MMOL/L (3.5-5.1); PSA SCREENING 0.64 NG/ML (< 4.00); SODIUM LEVEL 141 MMOL/L (136-145); TOTAL PROTEIN 6.9 G/DL (5.7-8.2); TRIGLYCERIDES LEVEL 183 MG/DL (<150)
[2024-09-12 20:10] LABS: HEMOGLOBIN A1c 5.8 % (4.0-6.0)
== END ==
LOC: M SFHCCAPE 07:59
PROVIDERS: ATTEND Physician Assistant
DX: Z00.00 Encounter for general adult medical examination without abnormal findings (principal); I11.9 Hypertensive heart disease without heart failure; R73.03 Prediabetes; G25.0 Essential tremor; Z12.5 Encounter for screening for malignant neoplasm of prostate
CPT/HCPCS: 80053; 80061; 83036; 85025; G0103

== ENCOUNTER → 2024-09-22 | Outpatient (CLI) | payer MEDICARE | LOC: M PLAIMG 15:07 | PROVIDERS: ATTEND Physician Assistant | DX: R42 Dizziness and giddiness (principal); I67.82 Cerebral ischemia ==